=== PATIENT | female | born 1950 | race Caucasian/White ===

== ENCOUNTER 2018-01-10 08:28 | Day surgery (SDC) | payer MEDICARE ==
[~2018-01-10] VITALS: Ht 167.6 cm; Wt 67.4 kg
[~2018-01-10 08:28] MED LIST: ASPI-555 PO; CALC600T12 PO; GLUC100019 PO; MAGN400C PO; METO200T PO; MULT-1077 PO; OMEG-125 PO; PYRI25TA3 PO; SODIUM CHLORIDE 0.9% 1000ML 1,000 ML IV ONE; UBID100C10 PO
[2018-01-10 08:55] VITALS: BP 144/71
[2018-01-10] MEDS ORDERED: MEPERIDINE-PF 50 MG/ML SYG ONE (09:48)
[2018-01-10] MEDS ORDERED: MIDAZOLAM HCL 1 MG/ML 2ML VIAL ONE (09:48)
[2018-01-10 10:14] VITALS: BP 131/66
== END 2018-01-10 11:05 | disposition home or self-care (01) ==
LOC: DAH 08:28
PROVIDERS: ATTEND Internal Medicine Gastroenterology
DX: Z09 Encounter for follow-up examination after completed treatment for conditions other than malignant neoplasm (principal); Z86.010 Personal history of colon polyps; I48.91 Unspecified atrial fibrillation; Z79.899 Other long term (current) drug therapy; Z98.890 Other specified postprocedural states; Z88.8 Allergy status to other drugs, medicaments and biological substances
CPT/HCPCS: A4606; G0105; J2175; J2250; J7030; 99152

== ENCOUNTER → 2023-04-16 | Outpatient (CLI) | payer OTHER ==
[~2023-04-16] MED LIST changes: -ASPI-555 PO; +ASPI-556 PO; +CALC-1125 PO; -CALC600T12 PO; -SODIUM CHLORIDE 0.9% 1000ML 1,000 ML IV ONE
== END | disposition home or self-care (01) ==
LOC: OIH 09:39
PROVIDERS: ATTEND Family Medicine
DX: Z13.6 Encounter for screening for cardiovascular disorders (principal)
CPT/HCPCS: 75571